=== PATIENT | female | born 1995 | race African-American/Black ===

== ENCOUNTER 2019-07-29 18:32 | Emergency (ER) | payer OTHER ==
[~2019-07-29] VITALS: Ht 160 cm; Wt 59.0 kg
[2019-07-29 18:52] LABS: URINE BILIRUBIN NEGATIVE (Negative); URINE BLOOD NEGATIVE (Negative); URINE CLARITY CLEAR; URINE COLOR YELLOW; URINE GLUCOSE-RANDOM* NEGATIVE (Negative); URINE KETONES NEGATIVE (Negative); URINE LEUKOCYTES-REFLEX 2+ (Negative); URINE NITRITE-REFLEX NEGATIVE (Negative); URINE PROTEIN (DIPSTICK) NEGATIVE (Negative); URINE SPECIFIC GRAVITY <= 1.005 (1.005-1.035); URINE UROBILINOGEN 0.2 E.U./dl (0.2-1.0)
[2019-07-29 18:58] LABS: SQUAMOUS 4-10 Moderate /LPF (0-3); URINE RBC None Seen /HPF (0-2); URINE WBC-REFLEX 6-15 Few /HPF (0-5)
[2019-07-29 18:59] LABS: BACTERIA-REFLEX 1-9 Few /HPF (None Seen); CASTS None Seen /LPF (None Seen); CRYSTALS None Seen /LPF (None Seen)
[2019-07-29 19:11] LABS: ABSOLUTE NEUTROPHILS 3.3 thou/uL (1.4-8.2); BASOPHILS 0.6 % (0.0-2.0); EOSINOPHILS 3.8 % (0.0-3.0); HEMATOCRIT 38.1 % (37.0-47.0); HEMOGLOBIN 12.2 gm/dL (12.0-15.0); MCH 27.2 pg (26.0-34.0); MCHC 32.1 g/dL (28.0-37.0); MCV 84.8 fL (80.0-100.0); MONOCYTES 7.7 % (1.0-8.0); PLATELET COUNT 244 thou/uL (150-400); POLYS 50.9 % (36.0-66.0); RBC 4.49 mil/uL (4.20-5.00); RDW 14.6 % (10.5-14.5); WBC 6.5 thou/uL (4.0-11.0)
[2019-07-29 19:22] LABS: CALCIUM 9.5 mg/dL (8.5-10.1); CREATININE 0.8 mg/dL (0.6-1.0); MAGNESIUM 1.9 mg/dL (1.8-2.4); POTASSIUM 3.4 mmol/L (3.5-5.1)
[2019-07-29] MEDS ORDERED: CEFUROXIME250 MG PO (20:01)
[2019-07-29 20:32] VITALS: BP 107/69
--- NOTE | 2019-07-30 08:20 | EKG ---
[address] [address] ELECTROCARDIOGRAM REPORT Name: SON GORMAN Room #: [facility] Kulwant#: [id number] Admission: 07/29/19 Attend Phys: Discharge: 07/29/19 Date of : [birth year] Report #: [id number] THIS REPORT FOR: //name// [facility] ED Test Date: 2019-07-29 Test Time: 19:18:43 Pat Name: SON GORMAN Department: Room: Gender: F Lighting Designer: ABDULAZIZ : 1995 Requested By: Soha Alexandra Order Number: [id number] MD: Filiberto Diaz Measurements Intervals [place] Rate: 72 P: 30 IA: 160 QRS: 58 QRSD: 75 T: 45 QT: 375 QTc: 411 Interpretive Statements Sinus rhythm No previous ECG available for comparison Electronically Signed On 07-30-2019 8:20:03 MEDICAL STAFF CREDENTIALING COORDINATOR by Filiberto Diaz [email or web address] <ELECTRONICALLY SIGNED> By: Filiberto Diaz MD 07/30/19 08 17 17 Filiberto Diaz MD /EPI
== END 2019-07-29 20:33 | disposition home or self-care (01) ==
LOC: ER 18:32
PROVIDERS: Emergency Medicine Emergency Medical Services; Nurse Practitioner Family
DX: N39.0 Urinary tract infection, site not specified (principal); R42 Dizziness and giddiness; Z86.2 Personal history of diseases of the blood and blood-forming organs and certain disorders involving the immune mechanism

== ENCOUNTER 2020-03-16 11:20 | Emergency (ER) | payer OTHER ==
[~2020-03-16] VITALS: Ht 160 cm; Wt 65.3 kg
[~2020-03-16 11:20] MED LIST: CEFUROXIME250 MG PO; FLAGYL500 M1 PO; MACA ROOT5 GM PO; PROTONIX40 M2 PO; ZOFRAN ODT4 MG PO
[2020-03-16 12:33] LABS: ABSOLUTE NEUTROPHILS 2.1 thou/uL (1.4-8.2); BASOPHILS 1.2 % (0.0-2.0); EOSINOPHILS 3.9 % (0.0-3.0); HEMATOCRIT 37.5 % (37.0-47.0); HEMOGLOBIN 12.4 gm/dL (12.0-15.0); LYMPHOCYTES 40.8 % (24.0-44.0); MCH 26.1 pg (26.0-34.0); MCHC 32.9 g/dL (28.0-37.0); MCV 79.2 fL (80.0-100.0); MONOCYTES 8.6 % (1.0-8.0); PLATELET COUNT 242 thou/uL (150-400); POLYS 45.5 % (36.0-66.0); RBC 4.74 mil/uL (4.20-5.00); RDW 15.3 % (10.5-14.5); WBC 4.6 thou/uL (4.0-11.0)
[2020-03-16 12:40] LABS: CALCIUM 9.4 mg/dL (8.5-10.1); CREATININE 0.8 mg/dL (0.6-1.0); POTASSIUM 3.4 mmol/L (3.5-5.1)
[2020-03-16 12:46] LABS: ALBUMIN 3.9 g/dL (3.4-5.0); TOTAL BILIRUBIN 0.3 mg/dL (0.2-1.0); TOTAL PROTEIN 8.2 g/dL (6.4-8.2)
[2020-03-16 13:31] LABS: URINE BILIRUBIN NEGATIVE (Negative); URINE BLOOD NEGATIVE (Negative); URINE CLARITY CLEAR; URINE COLOR YELLOW; URINE GLUCOSE-RANDOM* NEGATIVE (Negative); URINE KETONES NEGATIVE (Negative); URINE LEUKOCYTES-REFLEX NEGATIVE (Negative); URINE NITRITE-REFLEX NEGATIVE (Negative); URINE PROTEIN (DIPSTICK) NEGATIVE (Negative); URINE SPECIFIC GRAVITY 1.025 (1.005-1.035); URINE UROBILINOGEN 0.2 E.U./dl (0.2-1.0)
[2020-03-16] MEDS ORDERED: NAPROSYN500 MG PO (14:12)
[2020-03-16 14:31] VITALS: BP 105/58
--- NOTE | 2020-03-16 15:42 | EKG ---
[facility] [address] ELECTROCARDIOGRAM REPORT Name: SON GORMAN Room #: DEP [facility]#: [id number] Admission: 03/16/20 Attend Phys: Discharge: 03/16/20 Date of : [birth year] Report #: [id number] THIS REPORT FOR: cc: ASIM - [facility] family physician/PCP ASIM - [facility] family physician/PCP Shad Thurman MD [facility] THIS REPORT FOR: //name// [facility] ED Test Date: 2020-03-16 Test Time: 12:21:36 Pat Name: SON GORMAN Department: Room: Gender: F Cadd Technician: [facility] : 1995 Requested By: Jorge A Contreras Order Number: [id number] MD: Shad Thurman Measurements Intervals [place] Rate: 65 P: 23 ME: 160 QRS: 51 QRSD: 75 T: 36 QT: 373 QTc: 388 Interpretive Statements Sinus rhythm No significant abnormality Compared to ECG 07/29/2019 19:18:43 No significant changes Electronically Signed On 03-16-2020 15:41:43 CDT by Shad Thurman [email or web address] <ELECTRONICALLY SIGNED> By: Shad Thurman MD, [facility] 03/16/20 1541 1221 1221 Shad Thurman MD, [facility] /EPI
== END 2020-03-16 14:31 | disposition home or self-care (01) ==
LOC: ER 11:20
PROVIDERS: Physician Assistant
DX: D25.9 Leiomyoma of uterus, unspecified (principal); R11.2 Nausea with vomiting, unspecified; M54.9 Dorsalgia, unspecified